=== PATIENT | male | born 1935 | race Caucasian/White ===

== ENCOUNTER 2018-01-02 09:19 | Day surgery (SDC) | payer MEDICARE, OTHER ==
[2018-01-01 09:43] VITALS: BMI 29.8
[2018-01-02] MEDS ORDERED: Fentanyl 100 MCG/2 ML VIAL ONE ×4 (11:39→17:22)
[2018-01-02] MEDS ORDERED: PROPOFOL 200 MG/20 ML VIAL ONE (12:55)
[2018-01-02] MEDS ORDERED: Lidocaine 1% PF 5 ML VIAL ONE (12:55)
[2018-01-02] MEDS ORDERED: PHENYLEPHRINE-NS 100 MCG/ML 10 ML SYRINGE ONE (12:55)
[2018-01-02] MEDS ORDERED: Lidocaine 1% w/Epinephrine 1:100K 30 ML VIAL ONE (14:26)
[2018-01-02] MEDS ORDERED: Bacitracin Zinc Ointment 30 gm TUBE ONE (14:26)
[2018-01-02] MEDS ORDERED: Fentanyl 250 MCG/5 ML VIAL ONE (14:42)
[2018-01-02] MEDS ORDERED: Midazolam HCl 2 mg/2 ml Vial ONE (14:42)
[2018-01-02 15:20] LABS: Hemoglobin 16.3 g/dL (14.0-18.0)
[2018-01-02 15:26] LABS: Anion Gap 13 mmol/L (10-20); BUN (Urea Nitrogen) 30 mg/dL (8.4-25.7); Calc. Creatinine Clearance 51 mL/min (70-130); Calcium 9.6 mg/dL (7.8-10.44); Carbon Dioxide 29 mmol/L (23-31); Chloride 102 mmol/L (98-107); Estimated GFR-MDRD 41; Glucose 88 mg/dL (83-110); Potassium 5.3 mmol/L (3.5-5.1); Sodium 139 mmol/L (136-145)
--- NOTE | 2018-01-02 16:48 | NM ---
RIGHT EAR LYMPHOSCINTIGRAPHY: 01/02/18 HISTORY: Malignant melanoma of skin, unspecified. Malignant melanoma of the right ear. RADIOPHARMACEUTICAL: 300 microcuries technetium 99m sulfur colloid administered in divided doses around the lesion and the posterior helix of the right ear. FINDINGS: Canine anterior and lateral views of the head and neck and chest were obtained. There is a lymph node in the right upper anterior neck. No other abnormal areas of tracer localizatio n is seen. IMPRESSION: Sentinal lymph node in the right anterior upper neck. POS: CANDY
--- NOTE | 2018-01-02 22:52 | OP ---
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 PROCEDURES PERFORMED: 1. Wedge excision of right auricular lesion with complex closure. 2. Right superficial parotidectomy with facial nerve for sentinel node biopsy. PROCEDURE IN DETAIL: After consent was obtained, the patient was identified and brought to the opera ting room and placed on the table in supine position. The area in and around the ear was injected wi th radioactive tracer prior to the procedure and the tail of the parotid was identified as the site o f first signal. We then prepped and draped the patient after he was put to sleep and we positioned f or surgery. A wedge excision was made through and through the auricular cartilage that included the defect and a margin at least 1 cm on each side. The cartilage was then removed as well and rel axing incision was made inferiorly and superiorly allowing the helix to contract. We then were able to repair that and closed both the cartilage with Monocryl and the skin with 6-0 Prolene. A good fo rm and preservation of the superior part of the helix was maintained. We then made a preauricular in cision and carried it down into the neck and raised a standard parotid flap. We identified the poste rior belly of the sternocleidomastoid and dissected between the two. In that region, we used the Jonatan Probe to identify where the signal was coming. We dissected down along the pointer cartilage to the posterior digastric muscle and the area between the tube was where we were able to find the facial ne rve. This was dissected out beyond the pes and upper and lower branches were identified. This then allowed us to go back and focus in the tail of the parotid region in a safe fashion to where we could remove the lymph node that it gave us the loudest signal, which was approximately at 17. This was sent for histologic evaluation. We then obtained hemostasis and closed the wound in layers with Monocryl for the deep tissues and 6-0 Prolene for the skin. The patient was awakened. Dermabond wa s placed and taken to recovery room, remained in stable condition prior to discharge home.
--- NOTE | 2018-01-03 15:14 | EKG ---
Test Reason : Blood Pressure : / mmHG Vent. Rate : 088 BPM Atrial Rate : 079 BPM P-R Int : 000 ms QRS Dur : 134 ms QT Int : 454 ms P-R-T Axes : 000 265 065 degrees QTc Int : 549 ms Ventricular-paced rhythm with occasional Premature ventricular complexes Biventricular pacemaker detected Abnormal ECG No previous ECGs available Confirmed by DR. Asif BURLESON MD ([id number]) on 01/03/2018 3:14:13 PM Referred By: DALLIN Confirmed By:DR. Asif BURLESON MD
--- NOTE | 2018-01-09 06:01 | PQF ---
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 TAHIRA ZAMARRIPA The documentation in this patients record requires clarification to ensure coding compliance and accuracy. Check the appropriate box and include in your discharge summary. [ ] [ ] [ ] [ ] Please check this box if this does not apply to this patient [ ] Unable to determine [ ] Other diagnosis: Review the following information and exercise your independent professional judgment in responding to the clarification. Based upon the clinical findings, risk factors, and treatment, please clarify if you are treating one of the above probable or suspected diagnoses. Physician Signature: Date Time MTDD
== END 2018-01-02 18:48 | disposition home or self-care (01) ==
LOC: SDC 09:19
PROVIDERS: ATTEND Specialist
PROC: 07B10ZX Excision of Right Neck Lymphatic, Open Approach, Diagnostic (ICD-10-PCS; principal; 2018-01-02)
PROC: 0HQ2XZZ Repair Right Ear Skin, External Approach (ICD-10-PCS; 2018-01-02)
PROC: 0HB2XZZ Excision of Right Ear Skin, External Approach (ICD-10-PCS; 2018-01-02)
DX: D03.21 Melanoma in situ of right ear and external auricular canal (principal); E78.00 Pure hypercholesterolemia, unspecified; I10 Essential (primary) hypertension; F32.9 Major depressive disorder, single episode, unspecified; F41.9 Anxiety disorder, unspecified; I48.91 Unspecified atrial fibrillation; N19 Unspecified kidney failure; Z79.02 Long term (current) use of antithrombotics/antiplatelets; Z79.899 Other long term (current) drug therapy; Z88.8 Allergy status to other drugs, medicaments and biological substances; Z95.810 Presence of automatic (implantable) cardiac defibrillator
CPT/HCPCS: 11640; 12051; 38510; 78195; 80048; 85014; 85018; 88305; 88342; 93005; 96374; A9541; 93010; J2001; J2250; J2704; J3010

== ENCOUNTER 2019-04-04 04:13 | Inpatient (IN) | payer MEDICARE, OTHER ==
[2019-04-04 04:52] LABS: #Basophils 0.2 thou/uL (0.0-0.2); #Eosinphils 0.2 thou/uL (0.0-0.7); #Lymphocytes 0.4 thou/uL (1.20-3.40); #Monocytes 0.9 thou/uL (0.11-0.59); #Neutrophils 6.3 thou/uL (1.40-6.50); %Basophils 1.9 % (0.0-1.0); %Eosinophils 2.9 % (0.0-10.0); %Lymphocytes 5.1 % (21.0-51.0); %Monocytes 11.7 % (0.0-10.0); %Neutrophils 78.4 % (42.0-75.0); Hemoglobin 18.3 g/dL (14.0-18.0); Mean Corpuscular HGB CONC 32.3 g/dL (32.0-36.0); Mean Corpuscular Hemoglobin 33.5 pg (27.0-31.0); Mean Platelet Volume 7.8 fL (7.4-10.4); Platelet Count 230 thou/uL (130-400); RBC Distribution Width 13.6 % (11.5-14.5); Red Blood Cell (RBC) Count 5.46 mill/uL (4.70-6.10)
[2019-04-04 05:36] LABS: ALT (SGPT) 30 U/L (8-55); AST (SGOT) 37 U/L (5-34); Albumin 3.7 g/dL (3.4-4.8); Alkaline Phosphatase 103 U/L (40-110); Anion Gap 15 mmol/L (10-20); BUN (Urea Nitrogen) 23 mg/dL (8.4-25.7); Bilirubin, Total 1.2 mg/dL (0.2-1.2); Calc. Creatinine Clearance 0 mL/min (70-130); Calcium 9.5 mg/dL (7.8-10.44); Carbon Dioxide 31 mmol/L (23-31); Chloride 99 mmol/L (98-107); Estimated GFR-MDRD 35; Glucose 101 mg/dL (83-110); Potassium 3.6 mmol/L (3.5-5.1); Protein, Total 7.7 g/dL (5.8-8.1); Sodium 141 mmol/L (136-145)
[2019-04-04 05:40] LABS: INR-International Normal Ratio 1.4; PTT 46.7 SEC (22.9-36.1); Prothrombin Time 16.8 SEC (12.0-14.7)
[2019-04-04 06:14] LABS: CKMB 1.6 ng/mL (0-6.6)
[2019-04-04] MEDS ORDERED: Dexamethasone 10 MG/ML VIAL ONE (06:26)
--- NOTE | 2019-04-04 07:37 | CT ---
PRELIMINARY REPORT/[facility]/EMERGENCY AFTER HOURS PROCEDURE: EXAM: CT Head Without Intravenous Contrast. CLINICAL HISTORY: Confusion x 2-3 days; dizziness with standing, 2-3 days "Cannot concentrate" AOx4 Paced Rhythm 97.7 Oral Glucose 100 (-) Stroke Screen. TECHNIQUE: Axial computed tomography images of the head/brain without intravenous contrast. COMPARISON: None provided. FINDINGS: BRAIN: There are multiple masses throughout both hemispheres with the largest one seen in the right p arietal lobe measuring about 2.9 cm with adjacent vasogenic edema. No midline shift. VENTRICLES: No hydrocephalus. ORBITS: The orbits are unremarkable. SINUSES AND MASTOIDS: The paranasal sinuses and mastoid air cells are clear. SOFT TISSUES: No significant facial or scalp soft tissue swelling evident. No radiopaque foreign body is seen. BONES: No acute skull fracture. IMPRESSION: There are multiple masses throughout bilateral hemispheres with the largest one seen in the right par ietal lobe measuring about 2.9 cm with adjacent vasogenic edema. ELECTRONICALLY SIGNED BY: Gregoria Garcia MD Apr 04, 2019 5:16:16 AM PATTERN CHANGER AND REPAIRER FINAL REPORT CT OF THE BRAIN WITHOUT CONTRAST: FINDINGS/IMPRESSION: I agree with the findings and impression given in the preliminary report per [facility] physici an. There are masses scattered throughout the brain above and below the tentorium. There is surroun ding vasogenic edema surrounding the masses.
--- NOTE | 2019-04-04 07:46 | RAD ---
EXAM: Single view of the chest HISTORY: Confusion and dizziness COMPARISON: None FINDINGS: Single view of the chest shows an enlarged cardiomediastinal silhouette. There is a pacema ker with its leads in the right ventricle and coronary sinus. There is no evidence of consolidation, mass, or pleural effusion. The bones are unremarkable. IMPRESSION: No evidence of acute cardiopulmonary disease
--- NOTE | 2019-04-04 11:44 | PRG ---
DATE OF SERVICE: 04/04/2019 This is a 30-minute initial visit note, in which 30 minutes were spent reviewing the imaging record, evaluation, examination of the patient, formulation of plan. Greater than 50% time was spent in counseling on Keegan Gamez. Mr. Gamez is very pleasant 83-year-old man, who comes in with increased confusion, lightheadedness, and syncopal spell. CT scan shows multiple masses of hypodense and hyperdense range in appearance with associated vasogenic edema. He has a history of right ear melanoma excision by Dr. Martinez in December 2017. My concern obviously is that this is metastatic melanoma. On exam, he is alert and appropriate. He has left hand tremor and some confusion, but is very appropriate. At this point, he has been given Decadron. He does have a pacemaker in place, and I have met with the patient extensively along with his daughters. He does not want to pursue any type of treatment and would like to just be kept comfortable. I let him know that certainly keeping him on Decadron at 4 mg every 6 hours and any appropriate pain medication would be best. There is certainly no role for surgical intervention here and he is very adamant he wants to pursue no treatment for these. DIAGNOSIS: Multifocal brain mets, melanoma. Job ID: [id number]
[2019-04-04 11:56] LABS: Troponin I Less than 0.010 ng/mL (< 0.028)
[2019-04-04] MEDS: Dexamethasone 4 MG TAB PO SCH ×3 (13:56→21:44)
[2019-04-04 15:05] LABS: Troponin I Less than 0.010 ng/mL (< 0.028)
--- NOTE | 2019-04-04 16:02 | HP ---
CHIEF COMPLAINT: Lightheadedness. HISTORY OF PRESENT ILLNESS: The patient is an 83-year-old male, who has a history of melanoma removed from his right ear in December 2017, had initial biopsy with subsequent deep excision, had Jesus Manuel level 4, had a sentinel lymph node biopsy and was felt that excision had been successful and he was told he had less than a 10% chance of recurrence. States he has done fine until a few months ago when he started experiencing generalized weakness and a lack of energy, had no focal deficits. However, he did move to assisted living at the [facility] a couple of weeks ago. States over the last few days, he has had problems feeling lightheaded, occasionally dizzy and this morning he awakened feeling like he was "foggy," having some difficulty focusing and concentrating. He said he basically had to insist that they call an ambulance so that he could come in for evaluation. Currently, he says he feels fine, is completely normal at his baseline and again specifically denies any focal deficits. He has had some headaches over the last couple of days as well. Denies any nausea and vomiting. REVIEW OF SYSTEMS: All other systems reviewed. All pertinent positives and negatives noted in the HPI. 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 Denies having any coronary artery disease. His EF is less than 30 and he has a defibrillator with the BiV pacemaker. He has history of atrial fibrillation, hypertension, hyperlipidemia, chronic kidney disease stage 3 and the melanoma on the right ear as noted above. PAST SURGICAL HISTORY: Had the ICD placement and replacement in 2012 and the melanoma excised from the upper right earlobe. FAMILY HISTORY: Mother had ovarian cancer. Father's history is unknown. SOCIAL HISTORY: He is a nonsmoker, nondrinker. He is . He lives at the [facility] for the last 2 weeks. He is DNAR and any of his daughters would be his surrogate decision maker should that become necessary. ALLERGIES: NONE. MEDICATIONS: 1. Amiodarone 200 mg daily. 2. Calcium with vitamin D 600 mg one p.o. b.i.d. 3. Carvedilol 25 mg b.i.d. 4. Fish oil 1000 mg daily. 5. Fluticasone 50 mcg nasal spray daily. 6. Lasix 40 mg daily. 7. Levothyroxine 125 mcg p.o. daily. PHYSICAL EXAMINATION: VITAL SIGNS: BP was 151/92, pulse 72, respirations 18, temperature 98.0, O2 saturations 93% on room air. GENERAL APPEARANCE: Age-appropriate male, in no distress. He is awake and alert, oriented, very pleasant, cooperative. HEENT: PERRL. He has no OP lesions. He does have a small defect at the apex of the right auricle, status post excision of the prior melanoma. NECK: Supple and symmetric without lymphadenopathy, JVD, or carotid bruits. HEART: Regular rate and rhythm without murmurs, gallops, or rubs. Monitor shows paced rhythm. LUNGS: Clear to auscultation bilaterally with good chest wall expansion or exchange. ABDOMEN: Soft, nontender, and nondistended. Positive bowel sounds. No masses. No organomegaly. EXTREMITIES: No cyanosis, clubbing, or edema. PSYCHIATRIC: Normal affect and behavior. NEUROLOGIC: The patient has spontaneous appropriate movement of all extremities. Normal coordination. Normal cranial nerve function and normal cognition. LABORATORY DATA: White count 8.0, hemoglobin 18.3, platelets 230. INR is 1.4, PTT 46.7. Sodium 141, potassium 3.6, chloride 99, CO2 of 31, BUN is 23, creatinine is 1.86, glucose 101, calcium 9.5, AST 37, ALT 30, troponin 0.047. Chest x-ray is clear. CT head, multiple masses throughout bilateral hemispheres with the largest one seen in the right parietal lobe measuring 2.9 cm with vasogenic edema. IMPRESSION AND PLAN: 1. Brain metastases. The patient has a CT consistent with multiple metastases to the brain. Certainly given his recent headaches, lightheadedness, and difficulty with concentration, certainly supports that these are the culprit lesions. He has a history of melanoma and this is likely recurrent metastatic melanoma. Neurosurgery has been consulted and he has received some Decadron. MRI has been ordered and we are working on clearing his defibrillator in order to get that done. He says he is likely not interested in any aggressive treatment, although it would depend on the quality and longevity that it might provide him. Therefore, we will go ahead and consult Oncology. 2. History of melanoma as above. 3. Cardiomyopathy, apparently nonischemic with a defibrillator in place. Continue his home medications. 4. History of congestive heart failure. Continue carvedilol and Lasix. 5. Atrial fibrillation. Continue with carvedilol and Pradaxa. 6. Hypothyroidism, continue with levothyroxine. 7. Macrocytosis with polycythemia. We will defer to Oncology. 8. Chronic kidney disease stage 3, stable. 9. Indeterminate troponin. Suspect this is the patient's baseline given his history of cardiomyopathy. We will continue to trend. Job ID: [id number]
[2019-04-04] MEDS: Carvedilol 25 MG TAB PO SCH (17:17)
[2019-04-04] MEDS: Famotidine 20 MG TAB PO SCH (21:45)
[2019-04-05] MEDS: Dexamethasone 4 MG TAB PO SCH ×6 (01:01→23:13)
[2019-04-05 05:20] LABS: #Lymphocytes 0.7 thou/uL (1.20-3.40); #Monocytes 0.2 thou/uL (0.11-0.59); #Neutrophils 9.2 thou/uL (1.40-6.50); %Eosinophils 0.5 % (0.0-10.0); %Lymphocytes 6.5 % (21.0-51.0); %Neutrophils 91.1 % (42.0-75.0); Hemoglobin 16.5 g/dL (14.0-18.0); Mean Corpuscular HGB CONC 32.7 g/dL (32.0-36.0); Mean Corpuscular Hemoglobin 33.2 pg (27.0-31.0); Mean Platelet Volume 8.3 fL (7.4-10.4); Platelet Count 250 thou/uL (130-400); RBC Distribution Width 13.5 % (11.5-14.5); Red Blood Cell (RBC) Count 4.97 mill/uL (4.70-6.10); White Blood Cell (WBC) Count 10.1 thou/uL (4.8-10.8)
[2019-04-05 05:43] LABS: Anion Gap 16 mmol/L (10-20); BUN (Urea Nitrogen) 30 mg/dL (8.4-25.7); Calc. Creatinine Clearance 45 mL/min (70-130); Calcium 9.1 mg/dL (7.8-10.44); Carbon Dioxide 28 mmol/L (23-31); Chloride 99 mmol/L (98-107); Estimated GFR-MDRD 37; Glucose 136 mg/dL (83-110); Potassium 3.8 mmol/L (3.5-5.1); Sodium 139 mmol/L (136-145)
[2019-04-05] MEDS: Levothyroxine Sodium 125 MCG TAB PO SCH (06:48)
[2019-04-05] MEDS: Furosemide 40 MG TAB PO SCH (06:48)
[2019-04-05] MEDS: Famotidine 20 MG TAB PO SCH (11:05)
[2019-04-05] MEDS: Amiodarone 200 MG TAB PO SCH (11:05)
[2019-04-05] MEDS: Carvedilol 25 MG TAB PO SCH ×2 (11:06→18:22)
[2019-04-05] MEDS: Fluticasone Propionate Nasal Spray 16 gm Bottle NASAL SCH (11:06)
[2019-04-05] MEDS ORDERED: Senokot 8.6 MG TAB PO PRN (12:15)
--- NOTE | 2019-04-05 12:18 | PDOC.HOSPP ---
- Subjective Encounter Date: 04/05/19 Encounter Time: 12:16 Subjective: Feels ok. Some hot flushes and a little insomnia. Otherwise feeling some better overall. - Objective Vital Signs & Weight: Vital Signs (12 hours) Temp Pulse Resp BP Pulse Ox 04/05/19 11:10 94 L 04/05/19 09:50 97.4 F L 72 20 102/73 94 L 04/05/19 04:00 97.8 F 73 18 133/91 H 94 L Weight Weight 212 lb I&O: 04/04/19 04/05/19 04/06/19 06:59 06:59 06:59 Intake Total 600 Output Total 200 Balance 400 Result Diagrams: 04/05/19 05:02 04/05/19 05:02 Hospitalist ROS - Medication Medications: Active Medications Generic Name Dose Route Start Last Admin Trade Name Freq PRN Reason Stop Dose Admin Amiodarone HCl 200 mg 04/05/19 09:00 04/05/19 11:05 Cordarone PO 200 mg DAILY ABEL Administration Carvedilol 25 mg 04/04/19 17:00 04/05/19 11:06 Coreg PO 25 mg BID-WM ABEL Administration Dexamethasone 4 mg 04/05/19 06:00 04/05/19 11:05 Decadron PO 4 mg Q6HR ABEL Administration Famotidine 20 mg 04/04/19 21:00 04/05/19 11:05 Pepcid PO 20 mg BID ABEL Administration Fluticasone Propionate 1 gm 04/05/19 09:00 04/05/19 11:06 Flonase Nasal [place] NASAL 2 spr DAILY ABEL Administration Furosemide 40 mg 04/05/19 07:30 04/05/19 06:48 Lasix PO 40 mg DAILY-AC ABEL Administration Levothyroxine Sodium 125 mcg 04/05/19 06:00 04/05/19 06:48 Synthroid PO 125 mcg 0600 ABEL Administration Pantoprazole Sodium 40 mg 04/05/19 09:00 04/05/19 11:05 Protonix PO 40 mg DAILY ABEL Administration - Exam General Appearance: NAD, awake alert Heart: RRR, no murmur, no gallops, no rubs, normal peripheral pulses Respiratory: CTAB, no wheezes, no rales, no ronchi, normal chest expansion, no tachypnea, normal percussion Gastrointestinal: soft, non-tender, non-distended, normal bowel sounds, no palpable masses, no hepatomegaly, no splenomegaly, no bruit Extremities: no cyanosis, no clubbing, no edema Skin: normal turgor Musculoskeletal: normal tone Psychiatric: normal affect, normal behavior, A&O x 3 Hosp A/P (1) Brain metastases Code(s): C79.31 - SECONDARY MALIGNANT NEOPLASM OF BRAIN Status: Acute (2) Hx of malignant skin melanoma Code(s): Z85.820 - PERSONAL HISTORY OF MALIGNANT MELANOMA OF SKIN Status: Acute (3) Cardiomyopathy Code(s): I42.9 - CARDIOMYOPATHY, UNSPECIFIED Status: Acute (4) Hypothyroidism Code(s): E03.9 - HYPOTHYROIDISM, UNSPECIFIED Status: Acute (5) Hx of congestive heart failure Code(s): Z86.79 - PERSONAL HISTORY OF OTHER DISEASES OF THE CIRCULATORY SYSTEM Status: Acute (6) CKD (chronic kidney disease), stage III Code(s): N18.3 - CHRONIC KIDNEY DISEASE, STAGE 3 (MODERATE) Status: Acute (7) Atrial fibrillation Code(s): I48.91 - UNSPECIFIED ATRIAL FIBRILLATION Status: Acute - Plan Metastatic melanoma to the brain. Does not want aggressive treatment, but open to hearing options. No neurosurg intervention. Likely not a great candidate for XRT given the extent and nature of the mets. If there are no viable treatment options that the patient will be willing to consider, can DC with po decadron. He is not going back to his prior residence and the patient's daughters are working on options, but need to know the plan first. Continuing the anticoagulation in spite of the risk of bleeding associated with these mets.
--- NOTE | 2019-04-05 19:40 | CON ---
DATE OF CONSULTATION: 04/05/2019 REASON FOR CONSULTATION: Metastatic malignancy to the brain. HISTORY OF PRESENT ILLNESS: The patient is an 83-year-old man admitted for progressive performance status decline over the past 1-2 months, associated with some confusion. There was no history to suggest a focal deficit or speech defect. He was ultimately moved about 10 days ago to an an assisted living setting at the [facility]. Over the last few days prior to admission he eventually convinced his caregivers to send him to the emergency room again and because of the difficulty with mental focus, a CT scan of the brain was performed revealing multiple focal defects measuring up to 2.9 cm compatible with metastatic malignancy. Of significance, there is a history of a right pinna melanoma resected in December 2017, which was Breslow depth 1.3 mm, Jesus Manuel level 2. A margin negative resection was performed and a sentinel node was also negative. No postoperative therapy was recommended. He has been started on Decadron and his mental status has improved. Multiple family members including two daughters are at the bedside. I am asked to see the patient to provide further management recommendations. PAST MEDICAL HISTORY: ALLERGIES: NONE. MEDICATIONS: Amiodarone, calcium, Coreg, fish oil, Lasix, and levothyroxine. MEDICAL ILLNESS: There is history of a cardiomyopathy with no history of coronary artery disease. His ejection fraction is reportedly less than 30%. He has a history of atrial fibrillation for which he has undergone ablative therapy. He has had a history of chronic kidney disease, specifically IgA nephropathy many years ago with a stable chronic renal insufficiency. There is also history of hypertension and hyperlipidemia. SURGERIES: He has had a defibrillator pacemaker placed in 2012. He had a melanoma excised. FAMILY HISTORY: His mother had ovarian cancer and his father's history is unknown. SOCIAL HISTORY: He is a nonsmoker and nondrinker. He is . He has lived at [facility] in the assisted living setting most recently. His daughters are his surrogate decision makers and he desires no active resuscitation efforts. REVIEW OF SYSTEMS: See history of present illness. Otherwise, he denies significant cardiopulmonary, GI, , musculoskeletal, or neurological complaints. PHYSICAL EXAMINATION: VITAL SIGNS: Temperature 98.1, pulse 73 and regular, respirations 24, blood pressure 113/75. GENERAL: The patient is a well-developed and well-nourished man in no acute distress. He is alert, oriented, cooperative. He is sitting up and conversing normally with the family and me. HEENT: The extraocular movements are intact. Pupils are equal, round, and reactive to light. NECK: Supple. LUNGS: Clear. CARDIOVASCULAR: Regular rate and rhythm without murmur, rub, gallop, or click. ABDOMEN: No tenderness, organomegaly, masses, bruits, or ascites. EXTREMITIES: No clubbing, cyanosis, edema. SKIN: Normal lymphadenopathy. MUSCULOSKELETAL: No active arthritis. NEUROLOGICAL: No focal findings and the cranial nerves 2-12 are grossly intact. LABORATORY: White blood cell count 10.0, hemoglobin 16.5, MCV 101, and platelet count 250,000. Chemistry showed normal electrolytes and a creatinine of 1.76, BUN 30. Random blood sugar is 136. Liver function studies are normal except for a borderline AST at 37. The calcium is normal at 9.5. Imaging see history of present illness. IMPRESSION: 1. Metastatic malignancy with multifocal involvement of the brain, likely metastatic melanoma. RECOMMENDATIONS: I had a long discussion with the patient and family regarding the grave situation. However, I also discussed treatment options to include palliative whole-brain radiation and at least a consideration for immunotherapy. I discussed the potential risks and possible benefits. After a long discussion, we will obtain a radiation oncology consultation in the morning and continue a management discussion with patient and family thereafter. A chest x-ray is normal suggesting no metastatic disease to the chest. Depending upon his management wishes, I see no need to pursue a total body staging at this time. Thanks for much for allowing provide my recommendations. Job ID: [id number] [facility]
[2019-04-06] MEDS: Furosemide 40 MG TAB PO SCH (06:31)
[2019-04-06] MEDS: Dexamethasone 4 MG TAB PO SCH ×3 (06:31→17:56)
[2019-04-06] MEDS: Levothyroxine Sodium 125 MCG TAB PO SCH (07:56)
[2019-04-06] MEDS: Carvedilol 25 MG TAB PO SCH ×2 (08:59→17:56)
[2019-04-06] MEDS: Amiodarone 200 MG TAB PO SCH (09:00)
[2019-04-06] MEDS: Famotidine 20 MG TAB PO SCH (09:00)
[2019-04-06] MEDS: Fluticasone Propionate Nasal Spray 16 gm Bottle NASAL SCH (09:00)
--- NOTE | 2019-04-06 10:17 | PDOC.HOSPP ---
- Subjective Encounter Date: 04/06/19 Encounter Time: 10:13 Subjective: Doing well. Has some questions about treatment as he feels like he got differing recommendations from different docs. - Objective Vital Signs & Weight: Vital Signs (12 hours) Temp Pulse Resp BP Pulse Ox 04/06/19 07:19 97.8 F 72 16 101/78 94 L 04/06/19 06:34 97.3 F L 71 16 110/74 94 L 04/05/19 23:14 97.8 F 71 16 116/81 93 L Weight Weight 212 lb I&O: 04/05/19 04/06/19 04/07/19 06:59 06:59 06:59 Intake Total 600 240 200 Output Total 200 300 Balance 400 -60 200 Result Diagrams: 04/05/19 05:02 04/05/19 05:02 Hospitalist ROS - Medication Medications: Active Medications Generic Name Dose Route Start Last Admin Trade Name Freq PRN Reason Stop Dose Admin Amiodarone HCl 200 mg 04/05/19 09:00 04/06/19 09:00 Cordarone PO 200 mg DAILY ABEL Administration Carvedilol 25 mg 04/04/19 17:00 04/06/19 08:59 Coreg PO 25 mg BID-WM ABEL Administration Dexamethasone 4 mg 04/05/19 06:00 04/06/19 06:31 Decadron PO 4 mg Q6HR ABEL Administration Famotidine 20 mg 04/06/19 09:00 04/06/19 09:00 Pepcid PO 20 mg DAILY ABEL Administration Fluticasone Propionate 1 gm 04/05/19 09:00 04/06/19 09:00 Flonase Nasal [place] NASAL 2 spr DAILY ABEL Administration Furosemide 40 mg 04/05/19 07:30 04/06/19 06:31 Lasix PO 40 mg DAILY-AC ABEL Administration Levothyroxine Sodium 125 mcg 04/05/19 06:00 04/06/19 07:56 Synthroid PO 125 mcg 0600 ABEL Administration Pantoprazole Sodium 40 mg 04/05/19 09:00 04/06/19 09:00 Protonix PO 40 mg DAILY ABEL Administration - Exam General Appearance: NAD, awake alert Heart: RRR, no murmur, no gallops, no rubs, normal peripheral pulses Respiratory: CTAB, no wheezes, no rales, no ronchi, normal chest expansion, no tachypnea, normal percussion Gastrointestinal: soft, non-tender, non-distended, normal bowel sounds, no palpable masses, no hepatomegaly, no splenomegaly, no bruit Musculoskeletal: normal tone, normal strength, no muscle wasting Psychiatric: normal affect Hosp A/P (1) Brain metastases Code(s): C79.31 - SECONDARY MALIGNANT NEOPLASM OF BRAIN Status: Acute (2) Hx of malignant skin melanoma Code(s): Z85.820 - PERSONAL HISTORY OF MALIGNANT MELANOMA OF SKIN Status: Acute (3) Cardiomyopathy Code(s): I42.9 - CARDIOMYOPATHY, UNSPECIFIED Status: Acute (4) Hypothyroidism Code(s): E03.9 - HYPOTHYROIDISM, UNSPECIFIED Status: Acute (5) Hx of congestive heart failure Code(s): Z86.79 - PERSONAL HISTORY OF OTHER DISEASES OF THE CIRCULATORY SYSTEM Status: Acute (6) CKD (chronic kidney disease), stage III Code(s): N18.3 - CHRONIC KIDNEY DISEASE, STAGE 3 (MODERATE) Status: Acute (7) Atrial fibrillation Code(s): I48.91 - UNSPECIFIED ATRIAL FIBRILLATION Status: Acute - Plan Metastatic melanoma to the brain. Does not want aggressive treatment, but open to hearing options. No neurosurg intervention. Likely not a great candidate for XRT given the extent and nature of the mets. He did talk with Dr. Hughes and will Talk to Dr. Valera today. If there are no viable treatment options that the patient will be willing to consider, can DC with po decadron. He is currently thinking he will likely not pursue treatment. He is confident in his deepthi and comfortable with the idea of maintaining as long as he can without risking the morbidity of treatment side-effects. He is not going back to his prior residence and the patient's daughters are working on options, but need to know the plan first. Want to discuss with case management. Continuing the anticoagulation in spite of the risk of bleeding associated with these mets.
[2019-04-06 10:21] VITALS: BMI 27.9
--- NOTE | 2019-04-06 12:17 | PDOC.PALCO ---
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 Mr Gamez transitioned to an assisted living secondary to increase in weakness and need for higher level of care and assistance with ADL's. Patient recently experienced a pronounced increase in lightheadedness, dizziness, and difficulty in concentration and focus. Requested to be transferred to [facility] for further evaluation. Admitted for further evaluation as CT in the initial assessment identified brain metastases, multiple lesions. 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 Denies any complaints at the time of assessment. Two daughters at bedside. - ROS Constitutional: alert Eyes: other (Denies any visual disturbances) ENT: other (Negatrive for ear pain, difficulity swallowing, congestion) Respiratory: other (Negative for shortness of breath, cough) Cardiology: other (Negative for chest pain, palpitaitons) Genitourinary: other (Denies frequency, dysuria) Neurological: other (Denies dizziness or confusion) Skin: dry, flakey - Objective Vital Signs: Vital Signs - Most Recent Temp Pulse Resp BP Pulse Ox 97.5 F L 71 16 111/72 95 04/06/19 11:32 04/06/19 11:32 04/06/19 11:32 04/06/19 11:32 04/06/19 11:32 Palliative Performance Scale: 50 - Physical Exam Constitutional: NAD HEENT: moist MMs, sclera anicteric Respiratory: clear to auscultation bilateral, no wheezing, unlabored breathing Cardiovascular: RRR Gastrointestinal: non-tender, positive bowel sounds Musculoskeletal: no cyanosis, no edema Neurology: moves all 4 limbs, no focal deficits Skin: cap refill <2 seconds, fragile, friable Psychiatric: A&O x 3, normal affect - Problem List (1) Palliative care encounter Code(s): Z51.5 - ENCOUNTER FOR PALLIATIVE CARE Current Visit: Yes Status: Acute (2) Brain metastases Code(s): C79.31 - SECONDARY MALIGNANT NEOPLASM OF BRAIN Current Visit: Yes Status: Acute (3) CKD (chronic kidney disease), stage III Code(s): N18.3 - CHRONIC KIDNEY DISEASE, STAGE 3 (MODERATE) Current Visit: Yes Status: Acute (4) Cardiomyopathy Code(s): I42.9 - CARDIOMYOPATHY, UNSPECIFIED Current Visit: Yes Status: Acute (5) Hx of congestive heart failure Code(s): Z86.79 - PERSONAL HISTORY OF OTHER DISEASES OF THE CIRCULATORY SYSTEM Current Visit: Yes Status: Acute (6) Hx of malignant skin melanoma Code(s): Z85.820 - PERSONAL HISTORY OF MALIGNANT MELANOMA OF SKIN Current Visit: Yes Status: Acute - Plan/Recommendations Plan: Visited with patient and his two daughters at length. Patient states that he desires to be discharged to a facility close to his daughter in [place]. Wishes to go to an assisted living facility under hospice care. Does not want to pursue any radiation or immunotherapy to treat or palliate his metastatic melanoma. *Discharge to facility with hospice care close to his daughter in [place] *Pet therapy is important for Mr Gamez *List provided by daughter for hospices to reach out to given to Ann KRAMER on unit [60] minutes spent on this encounter with >50% of the time in counseling and coordination of care. Thank you for this very appropriate consult.
--- NOTE | 2019-04-06 14:08 | PDOC.MOPN ---
Interval History: no complaints. - Vital Signs Vital Signs: Vital Signs (12 hours) Temp Pulse Resp BP Pulse Ox 04/06/19 11:32 97.5 F L 71 16 111/72 95 04/06/19 07:19 97.8 F 72 16 101/78 94 L 04/06/19 06:34 97.3 F L 71 16 110/74 94 L Weight Admit Weight 213 lb 12.8 oz Weight 212 lb - Physical Exam General: Alert Lungs: Other (unlabored) Cardiovascular: Regular rate Neurological: Normal speech - Labs Result Diagrams: 04/05/19 05:02 04/05/19 05:02 Status: lab reviewed by me A/P - Problem (1) Brain metastases Current Visit: Yes Code(s): C79.31 - SECONDARY MALIGNANT NEOPLASM OF BRAIN Status: Acute (2) Hx of malignant skin melanoma Current Visit: Yes Code(s): Z85.820 - PERSONAL HISTORY OF MALIGNANT MELANOMA OF SKIN Status: Acute - Plan Plan: Review of palliative care notes show patient and daughters seeking hospice care Confirmed with patient that he would like 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 Will sign off.
--- NOTE | 2019-04-06 16:49 | CON ---
DATE OF CONSULTATION: 04/06/2019 REASON FOR CONSULTATION: Mr. Gamez is an 83-year-old gentleman with previous history of melanoma who has now been diagnosed with numerous brain metastases. HISTORY OF PRESENT ILLNESS: Mr. Gamez had a melanoma removed from his right ear in 2018. The melanoma had Jesus Manuel level 4 and Breslow thickness of at least 1.3 mm. Surgical excision revealed negative margins and sentinel lymph node biopsy was negative for metastatic disease. He did well until recently when he began experiencing some confusion. He was in assisted living. He was brought to the emergency room where he underwent a CT scan of the head, which revealed multiple masses in the brain with the largest measuring 2.9 cm. There was surrounding vasogenic edema. He was placed on steroids and his mentation has improved. He is contemplating whether he wants to do any therapy. He did see Dr. Arizmendi, Neurosurgery, who felt there was nothing neurosurgically to offer. He has seen Dr. Hughes who asked me to see the patient. Presently, he has no headaches, nausea, or vomiting. He denies any focal weakness or numbness. He does have some tremors. He has no shortness of breath. He has no recent weight loss. He voices no other complaints. PAST MEDICAL HISTORY: 1. Melanoma as mentioned above. 2. Cardiomyopathy with decreased ejection fraction. 3. Status post defibrillator placement. 4. History of atrial fibrillation for which he has had ablation therapy. 5. Chronic renal insufficiency. 6. Hypertension. 7. Hypercholesterolemia. MEDICATIONS: 1. Amiodarone. 2. Calcium. 3. Coreg. 4. Fish oil tablets. 5. Lasix. 6. Levothyroxine. 7. Decadron. ALLERGIES: NO KNOWN MEDICAL ALLERGIES. SOCIAL HISTORY: He does not smoke or drink. He is a , who was living in [facility] in assisted living prior to admission. He is retired, but does admit that he worked outside most of his life and also played golf. FAMILY HISTORY: His mother at age 82 from ovarian cancer. His father's history is unknown. His grandfather had heart disease. There is no other family history of malignancy. REVIEW OF SYSTEMS: Ten-system review of systems is otherwise negative. PHYSICAL EXAMINATION: VITAL SIGNS: Height 6 feet 1 inch, weight 212 pounds. Blood pressure is 111/72, pulse is 71, respirations 16, temperature 97.5, O2 saturation 95% on room air. CONSTITUTIONAL: He is alert and oriented to person, place, time, situation, and recent events. Mentation is doing well. He is elderly in appearance. Karnofsky performance status is 70%. HEENT: Eyes, pupils equal, round, and reactive to light. Extraocular movements are intact. ENT, oral cavity and oropharynx are normal without lesion or erythema. Palate elevates symmetrically. Gingiva is intact. Right ear reveals surgical defect from his melanoma surgery. There is no nodularity or evidence of recurrence. He has chronic sun damage changes over the skin of the face. NECK: Supple without preauricular, submandibular, cervical, or supraclavicular adenopathy. No thyromegaly. Larynx midline. LUNGS: Breathing nonlabored. Clear to auscultation and percussion. CARDIOVASCULAR: Heart, regular rate and rhythm without murmur. No lower extremity edema. BACK: No tenderness on fist percussion of the spine. LYMPHATIC: No axillary or inguinal adenopathy. ABDOMEN: Bowel sounds present. Soft, nontender, nondistended without mass or hepatosplenomegaly. Liver percusses to normal size. NEUROLOGIC: Cranial nerves 2 through 12 are grossly intact. Motor strength is 5/5 in both upper and lower extremities in all muscle groups tested. Reflexes are diminished, but symmetrical. Gait was not tested. RADIOLOGIC DATA: CT scan of the head without contrast was personally reviewed. He has at least 10 lesions in the brain with surrounding vasogenic edema. The largest is 2.9 cm. Chest x-ray shows defibrillator in place, but no evidence of metastatic disease in the lung. Pathology from his right ear did show melanoma in 2018. CBC revealed a white blood cell count of 10,100 with hemoglobin of 16.5, hematocrit of 50.3, and platelet count of 250,000. Chemistry group showed creatinine of 1.76. Electrolytes were otherwise normal. ASSESSMENT: Mr. Gamez is an 83-year-old gentleman who appears to have a new diagnosis of brain metastasis, almost certainly this is from his melanoma. PLAN: I had discussion today with Mr. Gamez regarding his diagnosis, prognosis, prognostic factors, and treatment options. Unfortunately, his daughters were not present at the bedside. I did offer to Mr. Gamez to talk to his daughters if they did wish to talk to me. We discussed his prognosis which is likely limited. He understands that he does not have curable disease. Nevertheless, we could treat him with whole-brain radiation therapy and possibly even immunotherapy after that and may extend his survival. Likely the extension on a survival would be measured in months, although sometimes we do see some dramatic responses with treatment and immunotherapy can also induce some responses or stabilize disease in the brain up to 50% of the time. The logistics of radiation as well as the benefits and risk of treatment were discussed. The simulation and daily treatment procedure were discussed. Side effects would include but not be limited to skin reaction, fatigue, lower blood count, hair loss, which may be permanent, headaches, nausea, vomiting, small risk of damage to his normal brain which could affect memory or mentation. Mr. Gamez has indicated to me that he does not wish to pursue any therapy at this point. He does not wish to pursue radiation or immunotherapy. At one point, he mentioned that he was considering immunotherapy, but I explained to him that if he was going to do immunotherapy would be better if he did the radiation therapy to the brain first before the immunotherapy. This would allow us hopefully to reduce the steroid doses since the immunotherapy does not work as well in patients that are on steroids. He then reiterated to me that he is comfortable with his decision to do no treatment including no radiation or immunotherapy. He is comfortable knowing that he may only have a few weeks left to live. He also reports that his daughters are in agreement with that decision. He wishes to pursue care with hospice and informs me that they are already looking at several different hospice organizations that he might get involved with his care. Again, I asked him if he changes his mind to contact me or should his daughters wish to talk to me that they get in touch with me and we can revisit these issues at any point. He is quite comfortable with his decision for no treatment other than supportive care with steroids and hospice care. Thank you for this kind consultation. Job ID: [id number]
[2019-04-07] MEDS: Acetaminophen 325 MG TAB PO PRN ×3 (00:01→13:17)
[2019-04-07] MEDS: Dexamethasone 4 MG TAB PO SCH ×4 (00:02→17:31)
[2019-04-07] MEDS: Levothyroxine Sodium 125 MCG TAB PO SCH (06:50)
[2019-04-07] MEDS: Furosemide 40 MG TAB PO SCH (06:50)
[2019-04-07] MEDS: Famotidine 20 MG TAB PO SCH (08:04)
[2019-04-07] MEDS: Amiodarone 200 MG TAB PO SCH (08:04)
[2019-04-07] MEDS: Fluticasone Propionate Nasal Spray 16 gm Bottle NASAL SCH (08:04)
[2019-04-07] MEDS: Carvedilol 25 MG TAB PO SCH ×2 (08:04→17:31)
--- NOTE | 2019-04-07 16:23 | PDOC.HOSPP ---
- Subjective Subjective: Doing ok. Had a minor breathing issue that seems to be better with oxygen. He says he now notices that he had some minor issues that he can contribute to the brain mets in retrospect. He is very content with his decision regarding conservative management of the brain mets. - Objective Vital Signs & Weight: Vital Signs (12 hours) Temp Pulse Resp BP Pulse Ox 04/07/19 15:05 97.5 F L 72 17 118/90 97 04/07/19 07:35 98 F 72 20 120/81 96 Weight Admit Weight 213 lb 12.8 oz Weight 212 lb I&O: 04/06/19 04/07/19 04/08/19 06:59 06:59 06:59 Intake Total 240 1070 Output Total 300 500 Balance -60 1070 -500 Result Diagrams: 04/05/19 05:02 04/05/19 05:02 Hospitalist ROS - Medication Medications: Active Medications Generic Name Dose Route Start Last Admin Trade Name Freq PRN Reason Stop Dose Admin Acetaminophen 650 mg 04/04/19 10:12 04/07/19 13:17 Tylenol PO 650 mg Q4H PRN Administration Headache/Fever/Mild Pain (1-3) Amiodarone HCl 200 mg 04/05/19 09:00 04/07/19 08:04 Cordarone PO 200 mg DAILY ABEL Administration Carvedilol 25 mg 04/04/19 17:00 04/07/19 08:04 Coreg PO 25 mg BID-WM ABEL Administration Dexamethasone 4 mg 04/05/19 06:00 04/07/19 13:16 Decadron PO 4 mg Q6HR ABEL Administration Famotidine 20 mg 04/06/19 09:00 04/07/19 08:04 Pepcid PO 20 mg DAILY ABEL Administration Fluticasone Propionate 1 gm 04/05/19 09:00 04/07/19 08:04 Flonase Nasal [place] NASAL 2 spr DAILY ABEL Administration Furosemide 40 mg 04/05/19 07:30 04/07/19 06:50 Lasix PO 40 mg DAILY-AC ABEL Administration Levothyroxine Sodium 125 mcg 04/05/19 06:00 04/07/19 06:50 Synthroid PO 125 mcg 0600 ABEL Administration - Exam General Appearance: NAD, awake alert Heart: RRR, no murmur, no gallops, no rubs, normal peripheral pulses Respiratory: CTAB, no wheezes, no rales, no ronchi, normal chest expansion, no tachypnea, normal percussion Gastrointestinal: soft, non-tender, non-distended, normal bowel sounds, no palpable masses, no hepatomegaly, no splenomegaly, no bruit Musculoskeletal: normal tone, normal strength, no muscle wasting Psychiatric: normal affect, normal behavior, A&O x 3 Hosp A/P (1) Brain metastases Code(s): C79.31 - SECONDARY MALIGNANT NEOPLASM OF BRAIN Status: Acute (2) Hx of malignant skin melanoma Code(s): Z85.820 - PERSONAL HISTORY OF MALIGNANT MELANOMA OF SKIN Status: Acute (3) Cardiomyopathy Code(s): I42.9 - CARDIOMYOPATHY, UNSPECIFIED Status: Acute (4) Hypothyroidism Code(s): E03.9 - HYPOTHYROIDISM, UNSPECIFIED Status: Acute (5) Hx of congestive heart failure Code(s): Z86.79 - PERSONAL HISTORY OF OTHER DISEASES OF THE CIRCULATORY SYSTEM Status: Acute (6) CKD (chronic kidney disease), stage III Code(s): N18.3 - CHRONIC KIDNEY DISEASE, STAGE 3 (MODERATE) Status: Acute (7) Atrial fibrillation Code(s): I48.91 - UNSPECIFIED ATRIAL FIBRILLATION Status: Acute - Plan Metastatic melanoma to the brain. Does not want aggressive treatment after hearing about the treatment options. He is content to live out the remainder of his days with the best quality of life he can have. Case Management talked with his daughters today. They wish to pursue placement closer to one of them where he can have hospice services.
[2019-04-07] MEDS: Zolpidem Tartrate 5 MG TAB PO PRN (20:36)
[2019-04-08] MEDS: Dexamethasone 4 MG TAB PO SCH ×4 (00:47→17:10)
[2019-04-08] MEDS: Levothyroxine Sodium 125 MCG TAB PO SCH (05:48)
[2019-04-08] MEDS: Fluticasone Propionate Nasal Spray 16 gm Bottle NASAL SCH (08:54)
[2019-04-08] MEDS: Furosemide 40 MG TAB PO SCH (08:54)
[2019-04-08] MEDS: Amiodarone 200 MG TAB PO SCH (08:54)
[2019-04-08] MEDS: Carvedilol 25 MG TAB PO SCH ×2 (08:54→17:10)
[2019-04-08] MEDS: Famotidine 20 MG TAB PO SCH (08:54)
--- NOTE | 2019-04-08 08:55 | PDOC.HOSPP ---
- Subjective Subjective: Doing ok. No complaints/concerns. - Objective Vital Signs & Weight: Vital Signs (12 hours) Temp Pulse Resp BP Pulse Ox 04/08/19 08:50 96.9 F L 71 18 128/87 95 04/08/19 04:00 97.5 F L 74 18 114/88 96 04/08/19 00:00 97.2 F L 73 18 135/92 H 96 04/07/19 22:25 107/68 Weight Admit Weight 213 lb 12.8 oz Weight 212 lb I&O: 04/07/19 04/08/19 04/09/19 06:59 06:59 06:59 Intake Total 1070 530 Output Total 1200 Balance 1070 -1200 530 Result Diagrams: 04/05/19 05:02 04/05/19 05:02 Hospitalist ROS - Medication Medications: Active Medications Generic Name Dose Route Start Last Admin Trade Name Freq PRN Reason Stop Dose Admin Acetaminophen 650 mg 04/04/19 10:12 04/07/19 13:17 Tylenol PO 650 mg Q4H PRN Administration Headache/Fever/Mild Pain (1-3) Amiodarone HCl 200 mg 04/05/19 09:00 04/07/19 08:04 Cordarone PO 200 mg DAILY ABEL Administration Carvedilol 25 mg 04/04/19 17:00 04/07/19 17:31 Coreg PO 25 mg BID-WM ABEL Administration Dexamethasone 4 mg 04/05/19 06:00 04/08/19 05:48 Decadron PO 4 mg Q6HR ABEL Administration Famotidine 20 mg 04/06/19 09:00 04/07/19 08:04 Pepcid PO 20 mg DAILY ABEL Administration Fluticasone Propionate 1 gm 04/05/19 09:00 04/07/19 08:04 Flonase Nasal [place] NASAL 2 spr DAILY ABEL Administration Furosemide 40 mg 04/05/19 07:30 04/07/19 06:50 Lasix PO 40 mg DAILY-AC ABEL Administration Levothyroxine Sodium 125 mcg 04/05/19 06:00 04/08/19 05:48 Synthroid PO 125 mcg 0600 ABEL Administration Zolpidem Tartrate 5 mg 04/07/19 17:51 04/07/19 20:36 Ambien PO 5 mg HSPRN PRN Administration Insomnia - Exam General Appearance: NAD, awake alert Psychiatric - other findings: Tearful, a little emotional. Hosp A/P (1) Brain metastases Code(s): C79.31 - SECONDARY MALIGNANT NEOPLASM OF BRAIN Status: Acute (2) Hx of malignant skin melanoma Code(s): Z85.820 - PERSONAL HISTORY OF MALIGNANT MELANOMA OF SKIN Status: Acute (3) Cardiomyopathy Code(s): I42.9 - CARDIOMYOPATHY, UNSPECIFIED Status: Acute (4) Hypothyroidism Code(s): E03.9 - HYPOTHYROIDISM, UNSPECIFIED Status: Acute (5) Hx of congestive heart failure Code(s): Z86.79 - PERSONAL HISTORY OF OTHER DISEASES OF THE CIRCULATORY SYSTEM Status: Acute (6) CKD (chronic kidney disease), stage III Code(s): N18.3 - CHRONIC KIDNEY DISEASE, STAGE 3 (MODERATE) Status: Acute (7) Atrial fibrillation Code(s): I48.91 - UNSPECIFIED ATRIAL FIBRILLATION Status: Acute - Plan Metastatic melanoma to the brain. Does not want aggressive treatment after hearing about the treatment options. He is content to live out the remainder of his days with the best quality of life he can have. Case Management talked with his daughters today. They wish to pursue placement closer to one of them where he can have hospice services. Spent time with the patient discussing his situation. He is grieving appropriately and trying be strong for his family. Finds the most difficult time when friends come by. Reassured him that his feelings are normal and are not in conflict with his deepthi. Reassured him that he can express his emotions and not feel inhibited. He does look forward to the opportunity to see his late and to see Roger. Time in face to face encounter was 15 min.
[2019-04-08] MEDS: Zolpidem Tartrate 5 MG TAB PO PRN (20:02)
[2019-04-09] MEDS: Dexamethasone 4 MG TAB PO SCH ×3 (00:22→20:37)
[2019-04-09] MEDS: Levothyroxine Sodium 125 MCG TAB PO SCH (06:52)
[2019-04-09] MEDS: Furosemide 40 MG TAB PO SCH (06:52)
[2019-04-09] MEDS: Amiodarone 200 MG TAB PO SCH (08:52)
[2019-04-09] MEDS: Fluticasone Propionate Nasal Spray 16 gm Bottle NASAL SCH (08:52)
[2019-04-09] MEDS: Carvedilol 25 MG TAB PO SCH ×2 (08:52→17:26)
[2019-04-09] MEDS: Famotidine 20 MG TAB PO SCH (10:33)
[2019-04-09] MEDS ORDERED: FLUoxetine HCl 20 MG CAP PO SCH (12:30)
--- NOTE | 2019-04-09 19:50 | PDOC.HOSPP ---
- Subjective Subjective: Says he is ok with no complaints. He has had some frustrations around the slow progress in finding a place for him. His daughters continue to search. His daughter also indicated he was on Effexor and Fluoxetine previously. He has not been on it here. She indicated he always had a bit of a temper problem and it was always easy to know when he wasn't on his meds. - Objective Vital Signs & Weight: Vital Signs (12 hours) Temp Pulse Resp BP Pulse Ox 04/09/19 17:15 98.2 F 86 20 168/105 H 98 04/09/19 16:11 98.6 F 73 13 119/90 97 04/09/19 11:36 73 14 104/78 97 04/09/19 08:48 97 Weight Admit Weight 213 lb 12.8 oz Weight 212 lb I&O: 04/08/19 04/09/19 04/10/19 06:59 06:59 06:59 Intake Total 1670 0 Output Total 1200 330 Balance -1200 1340 0 Result Diagrams: 04/05/19 05:02 04/05/19 05:02 Hospitalist ROS - Medication Medications: Active Medications Generic Name Dose Route Start Last Admin Trade Name Freq PRN Reason Stop Dose Admin Acetaminophen 650 mg 04/04/19 10:12 04/07/19 13:17 Tylenol PO 650 mg Q4H PRN Administration Headache/Fever/Mild Pain (1-3) Amiodarone HCl 200 mg 04/05/19 09:00 04/09/19 08:52 Cordarone PO 200 mg DAILY ABEL Administration Carvedilol 25 mg 04/04/19 17:00 04/09/19 17:26 Coreg PO Not Given BID-WM ABEL Famotidine 20 mg 04/06/19 09:00 04/09/19 10:33 Pepcid PO Not Given DAILY ABEL Fluticasone Propionate 1 gm 04/05/19 09:00 04/09/19 08:52 Flonase Nasal [place] NASAL 2 spr DAILY ABEL Administration Furosemide 40 mg 04/05/19 07:30 04/09/19 06:52 Lasix PO 40 mg DAILY-AC ABEL Administration Levothyroxine Sodium 125 mcg 04/05/19 06:00 04/09/19 06:52 Synthroid PO 125 mcg 0600 ABEL Administration Zolpidem Tartrate 5 mg 04/07/19 17:51 04/08/19 20:02 Ambien PO 5 mg HSPRN PRN Administration Insomnia - Exam Heart: RRR, no murmur, no gallops, no rubs, normal peripheral pulses Respiratory: CTAB, no wheezes, no rales, no ronchi, normal chest expansion, no tachypnea, normal percussion Gastrointestinal: soft, non-tender, non-distended, normal bowel sounds, no palpable masses, no hepatomegaly, no splenomegaly, no bruit Skin: normal turgor Musculoskeletal: normal tone, no muscle wasting, generalized weakness Psychiatric: normal affect Hosp A/P (1) Brain metastases Code(s): C79.31 - SECONDARY MALIGNANT NEOPLASM OF BRAIN Status: Acute (2) Hx of malignant skin melanoma Code(s): Z85.820 - PERSONAL HISTORY OF MALIGNANT MELANOMA OF SKIN Status: Acute (3) Cardiomyopathy Code(s): I42.9 - CARDIOMYOPATHY, UNSPECIFIED Status: Acute (4) Hypothyroidism Code(s): E03.9 - HYPOTHYROIDISM, UNSPECIFIED Status: Acute (5) Hx of congestive heart failure Code(s): Z86.79 - PERSONAL HISTORY OF OTHER DISEASES OF THE CIRCULATORY SYSTEM Status: Acute (6) CKD (chronic kidney disease), stage III Code(s): N18.3 - CHRONIC KIDNEY DISEASE, STAGE 3 (MODERATE) Status: Acute (7) Atrial fibrillation Code(s): I48.91 - UNSPECIFIED ATRIAL FIBRILLATION Status: Acute (8) History of depression Code(s): Z86.59 - PERSONAL HISTORY OF OTHER MENTAL AND BEHAVIORAL DISORDERS Status: Acute - Plan Metastatic melanoma to the brain. Does not want aggressive treatment after hearing about the treatment options. He is content to live out the remainder of his days with the best quality of life he can have. They wish to pursue placement closer to one of them where he can have hospice services. Spent time with the patient discussing his situation. I will resume the Fluoxetine. Effexor has interaction with amiodarone. Decrease the steroids as well. Later in the evening, the patient was moved to different floor and became for frustrated and angry. Can have prn benzodiazepines if necessary. Has ambien.
[2019-04-10] MEDS: Levothyroxine Sodium 125 MCG TAB PO SCH (05:49)
[2019-04-10] MEDS ORDERED: FLUoxetine HCl 20 MG CAP PO SCH (09:00)
[2019-04-10] MEDS ORDERED: Venlafaxine HCl XR 75 MG CAP PO SCH (09:00)
[2019-04-10] MEDS: Furosemide 40 MG TAB PO SCH (09:15)
[2019-04-10] MEDS: Carvedilol 25 MG TAB PO SCH ×2 (09:15→18:33)
[2019-04-10] MEDS: Dexamethasone 4 MG TAB PO SCH ×2 (09:15→19:12)
[2019-04-10] MEDS: Amiodarone 200 MG TAB PO SCH (09:15)
[2019-04-10] MEDS: Fluticasone Propionate Nasal Spray 16 gm Bottle NASAL SCH (09:16)
[2019-04-10] MEDS: Famotidine 20 MG TAB PO SCH (09:16)
[2019-04-10] MEDS: FLUoxetine HCl 20 MG CAP PO SCH (09:16)
--- NOTE | 2019-04-10 13:50 | PDOC.HOSPP ---
- Subjective Subjective: Doing ok. Has had some frustrations about moving rooms and waiting to have a place to discharge to. Spoke with his daughters. They have a place and are working through the hospice arrangements. He is amenable to taking something like Seroquel at night. - Objective Vital Signs & Weight: Vital Signs (12 hours) Temp Pulse Resp BP 04/10/19 12:00 97.8 F 72 18 132/91 H Weight Admit Weight 213 lb 12.8 oz Weight 212 lb I&O: 04/09/19 04/10/19 04/11/19 06:59 06:59 06:59 Intake Total 1670 0 Output Total 330 Balance 1340 0 Result Diagrams: 04/05/19 05:02 04/05/19 05:02 Hospitalist ROS - Medication Medications: Active Medications Generic Name Dose Route Start Last Admin Trade Name Freq PRN Reason Stop Dose Admin Acetaminophen 650 mg 04/04/19 10:12 04/07/19 13:17 Tylenol PO 650 mg Q4H PRN Administration Headache/Fever/Mild Pain (1-3) Amiodarone HCl 200 mg 04/05/19 09:00 04/10/19 09:15 Cordarone PO Not Given DAILY [facility] Carvedilol 25 mg 04/04/19 17:00 04/10/19 09:15 Coreg PO Not Given BID-WM ABEL Dexamethasone 4 mg 04/09/19 21:00 04/10/19 09:15 Decadron PO Not Given BID [facility] Famotidine 20 mg 04/06/19 09:00 04/10/19 09:16 Pepcid PO Not Given DAILY ABEL Fluoxetine HCl 20 mg 04/10/19 09:00 04/10/19 09:16 Prozac PO Not Given DAILY ABEL Fluticasone Propionate 1 gm 04/05/19 09:00 04/10/19 09:16 Flonase Nasal [place] NASAL Not Given DAILY ABEL Furosemide 40 mg 04/05/19 07:30 04/10/19 09:15 Lasix PO Not Given DAILY-AC ABEL Levothyroxine Sodium 125 mcg 04/05/19 06:00 04/10/19 05:49 Synthroid PO Not Given 0600 ABEL Zolpidem Tartrate 5 mg 04/07/19 17:51 04/08/19 20:02 Ambien PO 5 mg HSPRN PRN Administration Insomnia - Exam General Appearance: NAD, awake alert Heart: RRR, no murmur, no gallops, no rubs, normal peripheral pulses Respiratory: CTAB, no wheezes, no rales, no ronchi, normal chest expansion, no tachypnea, normal percussion Gastrointestinal: soft, non-tender, non-distended, normal bowel sounds, no palpable masses, no hepatomegaly, no splenomegaly, no bruit Neurological: no focal deficits Psychiatric: normal affect, normal behavior, A&O x 3 Hosp A/P (1) Brain metastases Code(s): C79.31 - SECONDARY MALIGNANT NEOPLASM OF BRAIN Status: Acute (2) Hx of malignant skin melanoma Code(s): Z85.820 - PERSONAL HISTORY OF MALIGNANT MELANOMA OF SKIN Status: Acute (3) Cardiomyopathy Code(s): I42.9 - CARDIOMYOPATHY, UNSPECIFIED Status: Acute (4) Hypothyroidism Code(s): E03.9 - HYPOTHYROIDISM, UNSPECIFIED Status: Acute (5) Hx of congestive heart failure Code(s): Z86.79 - PERSONAL HISTORY OF OTHER DISEASES OF THE CIRCULATORY SYSTEM Status: Acute (6) CKD (chronic kidney disease), stage III Code(s): N18.3 - CHRONIC KIDNEY DISEASE, STAGE 3 (MODERATE) Status: Acute (7) Atrial fibrillation Code(s): I48.91 - UNSPECIFIED ATRIAL FIBRILLATION Status: Acute (8) History of depression Code(s): Z86.59 - PERSONAL HISTORY OF OTHER MENTAL AND BEHAVIORAL DISORDERS Status: Acute - Plan Metastatic lesions in the brain presumed to be related to his recent dx of malignant melanoma. Does not want aggressive treatment after hearing about the treatment options. He is content to live out the remainder of his days with the best quality of life he can have. They wish to pursue placement closer to one of them where he can have hospice services. Spent time with the patient discussing his situation. I will resume the Fluoxetine. Effexor has interaction with amiodarone. Decrease the steroids as well. Add Seroquel q hs.
[2019-04-10 19:14] VITALS: BP 110/75; TEMP 97.7
[2019-04-10] MEDS: Zolpidem Tartrate 5 MG TAB PO PRN (19:47)
[2019-04-11] MEDS: Levothyroxine Sodium 125 MCG TAB PO SCH (04:33)
[2019-04-11] MEDS: Famotidine 20 MG TAB PO SCH (09:08)
[2019-04-11] MEDS: Carvedilol 25 MG TAB PO SCH (09:08)
[2019-04-11] MEDS: Furosemide 40 MG TAB PO SCH (09:08)
[2019-04-11] MEDS: Amiodarone 200 MG TAB PO SCH (09:08)
[2019-04-11] MEDS: Dexamethasone 4 MG TAB PO SCH (09:08)
[2019-04-11] MEDS: FLUoxetine HCl 20 MG CAP PO SCH (09:09)
[2019-04-11] MEDS: Fluticasone Propionate Nasal Spray 16 gm Bottle NASAL SCH (09:09)
--- NOTE | 2019-04-11 10:31 | PDOC.HOSPP ---
- Subjective Encounter Date: 04/11/19 Encounter Time: 08:30 Subjective: Patient seen and examined. No new complaints. No overnight events - Objective Vital Signs & Weight: Weight Admit Weight 213 lb 12.8 oz Weight 212 lb I&O: 04/10/19 04/11/19 04/12/19 06:59 06:59 06:59 Intake Total 0 480 Balance 0 480 Result Diagrams: 04/05/19 05:02 04/05/19 05:02 Hospitalist ROS - Review of Systems ENT: denies: ear pain, ear discharge, nose pain, nose discharge, nose congestion , mouth pain, mouth swelling, throat pain, throat swelling, other Respiratory: denies: cough, dry, shortness of breath, hemoptysis, SOB with excertion, pleuritic pain, sputum, wheezing, other Cardiovascular: denies: chest pain, palpitations, orthopnea, paroxysmal noc. dyspnea, edema, light headedness, other Gastrointestinal: denies: nausea, vomiting, abdominal pain, diarrhea, constipation, melena, hematochezia, other Genitourinary: denies: dysuria, frequency, incontinence, hematuria, retention, other Musculoskeletal: denies: neck pain, shoulder pain, arm pain, back pain, hand pain, leg pain, foot pain, other - Medication Medications: Active Medications Generic Name Dose Route Start Last Admin Trade Name Freq PRN Reason Stop Dose Admin Acetaminophen 650 mg 04/04/19 10:12 04/07/19 13:17 Tylenol PO 650 mg Q4H PRN Administration Headache/Fever/Mild Pain (1-3) Amiodarone HCl 200 mg 04/05/19 09:00 04/11/19 09:08 Cordarone PO Not Given DAILY [facility] Carvedilol 25 mg 04/04/19 17:00 04/11/19 09:08 Coreg PO Not Given BID-[facility] Dexamethasone 4 mg 04/09/19 21:00 04/11/19 09:08 Decadron PO Not Given BID [facility] Famotidine 20 mg 04/06/19 09:00 04/11/19 09:08 Pepcid PO Not Given DAILY [facility] Fluoxetine HCl 20 mg 04/10/19 09:00 04/11/19 09:09 Prozac PO Not Given DAILY [facility] Fluticasone Propionate 1 gm 04/05/19 09:00 04/11/19 09:09 Flonase Nasal [place] NASAL Not Given DAILY ABEL Furosemide 40 mg 04/05/19 07:30 04/11/19 09:08 Lasix PO Not Given DAILY-AC ABEL Levothyroxine Sodium 125 mcg 04/05/19 06:00 04/11/19 04:33 Synthroid PO Not Given 0600 ABEL Quetiapine Fumarate 25 mg 04/10/19 21:00 04/10/19 19:47 Seroquel PO 25 mg HS ABEL Administration Zolpidem Tartrate 5 mg 04/07/19 17:51 04/10/19 19:47 Ambien PO 5 mg HSPRN PRN Administration Insomnia - Exam General Appearance: NAD, awake alert Eye: PERRL, anicteric sclera ENT: normocephalic atraumatic, no oropharyngeal lesions Neck: supple, symmetric, no JVD Heart: RRR, no murmur, no gallops Respiratory: CTAB, no wheezes, no rales Gastrointestinal: soft, non-tender, non-distended Extremities: no cyanosis, no clubbing Skin: normal turgor, no lesions Neurological: no focal deficits Musculoskeletal: normal tone, normal strength Psychiatric: normal affect, normal behavior Hosp A/P (1) Atrial fibrillation Code(s): I48.91 - UNSPECIFIED ATRIAL FIBRILLATION Status: Acute (2) Brain metastases Code(s): C79.31 - SECONDARY MALIGNANT NEOPLASM OF BRAIN Status: Acute (3) CKD (chronic kidney disease), stage III Code(s): N18.3 - CHRONIC KIDNEY DISEASE, STAGE 3 (MODERATE) Status: Acute (4) Cardiomyopathy Code(s): I42.9 - CARDIOMYOPATHY, UNSPECIFIED Status: Acute (5) History of depression Code(s): Z86.59 - PERSONAL HISTORY OF OTHER MENTAL AND BEHAVIORAL DISORDERS Status: Acute (6) Hx of congestive heart failure Code(s): Z86.79 - PERSONAL HISTORY OF OTHER DISEASES OF THE CIRCULATORY SYSTEM Status: Acute (7) Hx of malignant skin melanoma Code(s): Z85.820 - PERSONAL HISTORY OF MALIGNANT MELANOMA OF SKIN Status: Acute (8) Hypothyroidism Code(s): E03.9 - HYPOTHYROIDISM, UNSPECIFIED Status: Acute - Plan old records reviewed/req medication reviewed and continue to provide symptomatic treatment and supportive care, dc to hospice at assisted living facility
--- NOTE | 2019-04-11 12:21 | DIS ---
DATE OF ADMISSION: 04/04/2019 DATE OF DISCHARGE: 04/11/2019 PRIMARY CARE PHYSICIAN: [facility] Call Admission. DISCHARGE DISPOSITION: Hospice at Assisted Living Facility. PRIMARY DISCHARGE DIAGNOSES: 1. Brain metastasis. 2. Malignant melanoma. SECONDARY DISCHARGE DIAGNOSES: 1. Atrial fibrillation. 2. Cardiomyopathy. 3. Chronic kidney disease, stage 3. 4. Anxiety and depression. 5. Chronic congestive heart failure, systolic. 6. Hypothyroidism. 7. History of malignant melanoma. 8. Physical deconditioning. 9. Gastroesophageal reflux disease. 10. Dyslipidemia. 11. Benign enlargement of prostate. PRIMARY PROCEDURE/OPERATION: None. RADIOLOGICAL INVESTIGATION: Chest x-ray showed no acute process. CT brain showed multiple masses throughout bilateral hemisphere with the largest one seen in the right parietal lobe with vasogenic edema. SIGNIFICANT LABORATORY DATA: Hemoglobin 16.5, MCV 101. INR 1.4. Creatinine 1.76. Troponin negative. Electrolytes normal. DISCHARGE MEDICATIONS: 1. Tylenol 500 mg p.r.n. for pain and fever. 2. Amiodarone 200 mg daily. 3. Calcium with vitamin D one tablet daily. 4. Coreg 25 mg b.i.d. 5. Flonase nasal spray daily. 6. Lasix 40 mg daily. 7. Synthroid 125 mcg daily. 8. Fish oil one capsule daily. 9. Omeprazole 20 mg daily. 10. Paricalcitol 2 mcg daily. 11. Flomax 0.4 mg daily. 12. Decadron 4 mg b.i.d. 13. Prozac 20 mg daily. 14. Seroquel 25 mg p.o. at bedtime. CONTRAINDICATION: The patient is not on any blood thinner medicine, because of brain metastasis and hospice care. CODE STATUS: DNR. INPATIENT UTILITY ENGINEER: Radiation Oncology, Oncology, Neurosurgery was following while in hospital. Palliative Care Team was consulted while in hospital. TEST RESULTS PENDING ON DISCHARGE: None. ALLERGIES: NO KNOWN DRUG ALLERGIES. DISCHARGE PLAN: Posthospital, the patient is discharged to hospice facility for comfort care. HOSPITAL COURSE: An 83-year-old male, who was admitted by Dr. Capone. Please see his H and P for further details. The patient was admitted for dizziness. In the emergency room, he was found with brain metastasis. He has underlying history of melanoma. Neurosurgery was consulted. The patient was not interested in getting any kind of treatment and he wanted to be comfortable and Decadron was started. Oncology was also consulted and Radiation Oncology was also consulted and they recommended treatment option, but the patient not wanted to go for any kind of treatment option and he preferred himself to be DNR and just he wanted to be comfort care only and based on his request, we decided to let him go home with hospice care. All arrangement have done. The patient's long-term prognosis is very poor. Job ID: [id number]
== END 2019-04-11 12:45 | disposition hospice, home (50) | DRG 54 ==
LOC: ERS 04:13 → ERHOLD 06:39 → 2SE 13:02 → T4-B 04-09 16:55
PROVIDERS: ADMIT Emergency Medicine; ATTEND Internal Medicine
DX: C79.31 Secondary malignant neoplasm of brain (principal); G93.6 Cerebral edema; I50.22 Chronic systolic (congestive) heart failure; I42.8 Other cardiomyopathies; I13.0 Hypertensive heart and chronic kidney disease with heart failure and stage 1 through stage 4 chronic kidney disease, or unspecified chronic kidney disease; Z66 Do not resuscitate; Z51.5 Encounter for palliative care; I48.91 Unspecified atrial fibrillation; N18.3 Chronic kidney disease, stage 3 (moderate); F41.9 Anxiety disorder, unspecified; F32.9 Major depressive disorder, single episode, unspecified; E03.9 Hypothyroidism, unspecified; K21.9 Gastro-esophageal reflux disease without esophagitis; E78.5 Hyperlipidemia, unspecified; N40.0 Benign prostatic hyperplasia without lower urinary tract symptoms; C43.9 Malignant melanoma of skin, unspecified; D75.1 Secondary polycythemia; E78.00 Pure hypercholesterolemia, unspecified; Z95.810 Presence of automatic (implantable) cardiac defibrillator; Z79.899 Other long term (current) drug therapy; Z79.51 Long term (current) use of inhaled steroids; Z79.890 Hormone replacement therapy; Z79.52 Long term (current) use of systemic steroids
CPT/HCPCS: 36415; 70450; 71045; 80048; 80053; 82553; 84484; 85025; 85610; 85730; 96374; J1100; J8540